=== PATIENT | female | born 1960 | race American Indian/Alaskan Native ===

== ENCOUNTER 2016-12-10 09:59 | Emergency (ER) | payer MEDICAID ==
[2016-12-10 10:03] VITALS: TEMP 98
[2016-12-10 10:04] VITALS: BMI 34.9
--- NOTE | 2016-12-10 10:49 | ED PDOC ---
Upper Extremity Pain/Injury Chief Complaint (Provider): Left elbow pain History Per: Patient History/Exam Limitations: no limitations Onset/Duration Of Symptoms: Hrs (12) Current Symptoms Are (Timing): Still Present Severity: Moderate Pain Scale Rating Of: 5 Exacerbating Factor(s): Movement Additional History Per: Patient Additional Complaint(s): 56 yo F presents to ED with c/o left arm pain since last night. Pt had bed delivered to home, and states that when she was trying to put sheets on the bed, the bed fell onto her arm. Maximal pain at elbow. States there was swelling of the elbow yesterday, for which she applied ice. Did not take any medication for the pain. Able to move the arm. Denies numbness/tingling/weakness. <Ashely Nunes - Last Filed: 12/10/16 11:16> <Mika Denton - Last Filed: 12/10/16 16:15> Time Seen by Provider: 12/10/16 10:15 Chief Complaint (Nursing): Upper Extremity Problem/Injury Supervising Attending Note - Supervising Attending Note The Documented history was done by the: Physician Engineering Associate, Attending Physician The documented physical exam was done by the: Physician Engineering Associate, Attending Physician The documented procedures were done by the: Physician Engineering Associate, Attending Physician - Attestation: I have personally seen and examined this patient.: Yes I have fully participated in the care of the patient.: Yes I have reviewed all pertinent clinical information: Yes <Mika Denton - Last Filed: 12/10/16 16:15> Past Medical History Reviewed: Historical Data, Nursing Documentation, Vital Signs Vital Signs: Last Vital Signs Temp 98 F 12/10/16 10:03 Pulse 94 H 12/10/16 10:03 Resp BP 158/114 H 12/10/16 10:03 Pulse Ox 100 12/10/16 10:03 - Medical History PMH: HTN, Hypercholesterolemia, Hyperlipidemia - Surgical History Surgical History: Coronary Stent Denies: Pacemaker - Family History Family History: States: Unknown Family Hx <Ashely Nunes - Last Filed: 12/10/16 11:16> Vital Signs: Last Vital Signs Temp 98 F 12/10/16 10:03 Pulse 89 12/10/16 11:14 Resp 18 12/10/16 11:14 BP 138/81 12/10/16 11:14 Pulse Ox 100 12/10/16 11:17 <CorrieLaurayamile Kramer - Last Filed: 12/10/16 16:15> - Home Medications Home Medications: Ambulatory Orders Medication Instructions Recorded Aspirin 81 mg PO DAILY 08/17/14 Oxycodone HCl/Acetaminophen 1 tab PO Q6H PRN #15 tab 11/21/14 [Percocet 325 mg-5 mg] Cephalexin [Keflex] 500 mg PO TID #9 cap 04/10/15 Peg 400/Hypromellose/Glycerin 1 - 2 drop OP DAILY #30 ml 06/02/16 [Visine Tears Drops] Amoxicillin/Clavulanate [Augmentin 1 tab PO BID #14 tab 06/04/16 875 MG-125 MG] Sulfamethoxazole/Trimethoprim 1 tab PO BID #14 tab 06/04/16 [Bactrim DS 800 mg-160 mg] Diphenhydra/Phenyleph/Acetamin 10 ml PO BID #180 liquid 09/19/16 [Delsym Cough+Cold Nighttime Lq] Guaifenesin [Mucinex] 600 mg PO BID #16 tab.er.12h 09/19/16 - Allergies Allergies/Adverse Reactions: Allergies Allergy/AdvReac Type Severity Reaction Status Date / Time No Known Allergies Allergy Verified 12/10/16 10:23 Review of Systems Constitutional: Negative for: Fever, Chills Musculoskeletal: Positive for: Arm Pain (left elbow) Neurological: Negative for: Weakness, Numbness, Dizziness <Ashely Nunes - Last Filed: 12/10/16 11:16> Physical Exam - Reviewed Nursing Documentation Reviewed: Yes Vital Signs Reviewed: Yes - Physical Exam Appears: Positive for: No Acute Distress Head Exam: Positive for: NORMAL INSPECTION Skin: Positive for: Normal Color, Warm, Dry Cardiovascular/Chest: Positive for: Regular Rate, Rhythm Respiratory: Positive for: Normal Breath Sounds Extremity: Positive for: Other (left shoulder full ROM with no tenderness to palpation. Left wrist and left hand also with full ROM and no tenderness. Left elbow - no deformity or swelling. tenderness to palpation of lateral epicondyle. FROM, but pain with flexion.). Negative for: Deformity, Swelling <Ashely Nunes - Last Filed: 12/10/16 11:16> - ECG O2 Sat by Pulse Oximetry: 100 - Radiology X-Ray: Interpreted by Me, Viewed By Me (d/w Dr. Denton) X-Ray Interpretation: Other (no acute fracture or dislocation seen) - Progress ED Course And Treament: No fracture on xray Likely contusion vs sprain will d/c home with sling, f/u with PMD and take ibuprofen 600mg TID prn pain, with meals <Ashely Nunes - Last Filed: 12/10/16 11:16> Disposition - Disposition Disposition Time: : <Ashely Nunes - Last Filed: 12/10/16 11:16> <Mika Denton - Last Filed: 12/10/16 16:15> - Clinical Impression Clinical Impression: Sprain of elbow, left - Disposition Referrals: Jhonatan Santillan MD [Primary Care Provider] - Condition: GOOD Additional Instructions: Take 600mg Ibuprofen every 6 hours, as needed for pain. Take with meals. Ice the area. Use sling as directed. Instructions: Elbow Sprain (ED)
[2016-12-10 11:14] VITALS: BP 138/81; PULSE 89; RESP 18
[2016-12-10 11:17] VITALS: O2SAT 100
--- NOTE | 2016-12-10 15:37 | RAD ---
PROCEDURE: Radiographs of the left elbow. HISTORY: pain COMPARISON: None available. FINDINGS: BONES: No acute displaced fracture. A lucency is noted about the medial radial head without extension to the articular surface and is presumed artifact; this is seen only on AP view. JOINTS: No dislocation. SOFT TISSUES: Unremarkable. No evidence of radiopaque foreign body. JOINT EFFUSION: No significant joint effusion. OTHER FINDINGS: None IMPRESSION: No acute displaced fracture, dislocation, or significant joint effusion identified. If symptoms persist, or if there is continued clinical concern, x-ray follow-up in 7-10 days should be considered.
== END 2016-12-10 11:15 | disposition home or self-care (01) ==
LOC: H.ER 09:59
DX: S53.402A Unspecified sprain of left elbow, initial encounter (principal); W20.8XXA Other cause of strike by thrown, projected or falling object, initial encounter; Y93.9 Activity, unspecified; I10 Essential (primary) hypertension; Z95.5 Presence of coronary angioplasty implant and graft

== ENCOUNTER 2016-12-18 08:10 | Emergency (ER) | payer MEDICAID ==
[2016-12-18 08:10] VITALS: BMI 34.9
[2016-12-18 08:16] VITALS: BP 136/83; PULSE 90; RESP 19; TEMP 97.9; O2SAT 99
[2016-12-18] MEDS ORDERED: Oxycodone/Acetaminophen 5/325 mg Tab ONE (08:47)
[2016-12-18] MEDS: Oxycodone/Acetaminophen 5/325 mg Tab PO ONE (08:54)
--- NOTE | 2016-12-18 09:03 | ED PDOC ---
HPI: Back Time Seen by Provider: 12/18/16 08:13 Chief Complaint (Nursing): Back Pain Chief Complaint (Provider): Back Pain History Per: Patient History/Exam Limitations: no limitations Onset/Duration Of Symptoms: Days Current Symptoms Are (Timing): Still Present Quality Of Discomfort: "Pain" Severity: Moderate Previous Symptoms: None Associated Symptoms: None Additional Complaint(s): Patient is a 56 year old female who presents to ED for evaluation of back pain worsening for several days. Patient states she was struck by a bed 2 weeks ago, initially injuring her elbow. States she was evaluated in ED at that time negative Xrays but only minimal back pain. Patient states back pain has since continued to worsen and is unbearable at this time. States taking Motrin at home with no relief. Denies numbness, weakness, urinary/bowel changes or neck pain. Pain reportedly radiates to bilateral legs. No abd pain. No chest pain. Past Medical History Reviewed: Historical Data, Nursing Documentation, Vital Signs Vital Signs: Last Vital Signs Temp 97.9 F 12/18/16 08:15 Pulse 90 12/18/16 08:15 Resp 19 12/18/16 08:15 BP 136/83 12/18/16 08:15 Pulse Ox 99 12/18/16 08:15 - Medical History PMH: HTN, Hypercholesterolemia, Hyperlipidemia - Surgical History Surgical History: Coronary Stent Denies: Pacemaker - Family History Family History: States: Unknown Family Hx - Living Arrangements Living Arrangements: With Family - Social History Alcohol: None Drugs: Denies - Home Medications Home Medications: Ambulatory Orders Medication Instructions Recorded Aspirin 81 mg PO DAILY 08/17/14 Oxycodone HCl/Acetaminophen 1 tab PO Q6H PRN #15 tab 11/21/14 [Percocet 325 mg-5 mg] Cephalexin [Keflex] 500 mg PO TID #9 cap 04/10/15 Peg 400/Hypromellose/Glycerin 1 - 2 drop OP DAILY #30 ml 06/02/16 [Visine Tears Drops] Amoxicillin/Clavulanate [Augmentin 1 tab PO BID #14 tab 06/04/16 875 MG-125 MG] Sulfamethoxazole/Trimethoprim 1 tab PO BID #14 tab 06/04/16 [Bactrim DS 800 mg-160 mg] Diphenhydra/Phenyleph/Acetamin 10 ml PO BID #180 liquid 09/19/16 [Delsym Cough+Cold Nighttime Lq] Guaifenesin [Mucinex] 600 mg PO BID #16 tab.er.12h 09/19/16 - Allergies Allergies/Adverse Reactions: Allergies Allergy/AdvReac Type Severity Reaction Status Date / Time No Known Allergies Allergy Verified 12/18/16 08:26 Review of Systems ROS Statement: Except As Marked, All Systems Reviewed And Found Negative Constitutional: Negative for: Fever, Weakness Eyes: Negative for: Vision Change Cardiovascular: Negative for: Chest Pain Respiratory: Negative for: Shortness of Breath Gastrointestinal: Negative for: Nausea, Vomiting Genitourinary Female: Negative for: Incontinence Musculoskeletal: Positive for: Back Pain, Leg Pain. Negative for: Neck Pain Neurological: Negative for: Weakness, Numbness, Headache Physical Exam - Reviewed Nursing Documentation Reviewed: Yes Vital Signs Reviewed: Yes - Physical Exam Appears: Positive for: Uncomfortable Head Exam: Positive for: ATRAUMATIC, NORMAL INSPECTION, NORMOCEPHALIC Skin: Positive for: Normal Color, Warm Eye Exam: Positive for: Normal appearance ENT: Positive for: Normal ENT Inspection Neck: Positive for: Normal, Painless ROM, Supple Cardiovascular/Chest: Positive for: Regular Rate, Rhythm. Negative for: Edema, Murmur Respiratory: Positive for: Normal Breath Sounds. Negative for: Respiratory Distress Gastrointestinal/Abdominal: Positive for: Normal Exam, Bowel Sounds, Soft. Negative for: Tenderness Back: Positive for: Normal Inspection, Other (diffuse lower lumbar tenderness (+ ) right sided straight leg raise at 20 degrees ). Negative for: L CVA Tenderness, R CVA Tenderness Extremity: Positive for: Normal ROM. Negative for: Tenderness, Pedal Edema, Calf Tenderness Neurologic/Psych: Positive for: Alert, Oriented. Negative for: Motor/Sensory Deficits - ECG O2 Sat by Pulse Oximetry: 99 (RA) Pulse Ox Interpretation: Normal - Radiology X-Ray: Interpreted by Me, Viewed By Me X-Ray Interpretation: No Acute Disease - Progress ED Course And Treament: 1000: Stable. AAOx3. Pain free. Tolerated PO. Fu with pcp. Ambulated. Medical Decision Making Medical Decision Making: Time: 824 Initial impression: Back pain r/o lumbar fracture Initial plan: -- Percocet PO -- Lumbar Spine Xray Scribe Attestation: Documented by Haylee Chow acting as a scribe for MD MD Estella Jaquez Attestation: All medical record entries made by the Dejaibflavio were at my direction and personally dictated by me. I have reviewed the chart and agree that the record accurately reflects my personal performance of the history, physical exam, medical decision making, and the department course for this patient. I have also personally directed, reviewed, and agree with the discharge instructions and disposition. Disposition - Clinical Impression Clinical Impression: Acute back pain - Patient ED Disposition Is Patient to be Admitted: No Counseled Patient/Family Regarding: Studies Performed, Diagnosis, Need For Followup - Disposition Referrals: [facility] [Outside] - 12/19/16 Disposition: Routine/Home Disposition Time: 10:01 Condition: STABLE Additional Instructions: Return if not better in 3 days. Instructions: Acute Low Back Pain (ED) Forms: [facility] ED School/Work Excuse
--- NOTE | 2016-12-18 11:12 | RAD ---
PROCEDURE: Radiographs of the Lumbar Spine. HISTORY: back pain COMPARISON: No prior. FINDINGS: BONES: No evidence of acute fracture or dislocation. DISC SPACES: Moderate degenerative changes more prominent at L3-L4. There is moderate narrowing of the disc is space at L3-L4 associated with endplate changes and osteophyte formation. OTHER FINDINGS: None. IMPRESSION: Moderate degenerative changes more prominent at L3-L4. .
== END 2016-12-18 10:39 | disposition home or self-care (01) ==
LOC: H.ER 08:10
DX: M54.9 Dorsalgia, unspecified (principal); E78.00 Pure hypercholesterolemia, unspecified; I10 Essential (primary) hypertension; Z79.82 Long term (current) use of aspirin; Z95.5 Presence of coronary angioplasty implant and graft

== ENCOUNTER 2016-12-25 08:31 | Emergency (ER) | payer MEDICAID ==
[2016-12-25 08:31] VITALS: BMI 34.9
[2016-12-25 08:41] VITALS: BP 149/83; PULSE 85; RESP 19; TEMP 98.3; O2SAT 99
--- NOTE | 2016-12-25 11:38 | ED PDOC ---
HPI: General Adult Time Seen by Provider: 12/25/16 09:04 Chief Complaint (Nursing): Abnormal Skin Integrity Chief Complaint (Provider): Abnormal Skin Integrity History Per: Patient History/Exam Limitations: no limitations Onset/Duration Of Symptoms: Days Current Symptoms Are (Timing): Still Present Severity: Moderate Additional Complaint(s): Patient is a 56 year old female who presents to ED for right breast pain for 5 days. Patient notes that she had an infection to breast 3 weeks ago, treated with antibiotics notes complete improvement of symptoms until 5 days. Patient reports bleeding and discharge from around the nipple with erythema. Denies fever, chills, chest pain or SOB. Against Medical Advice - AMA Patient Left Against Medical Advice: The patient declines admission to the hospital and wishes to leave the Emergency Department. This action is against my medical advice. This decision was made with informed refusal. The patient was told that admission to the hospital is necessary. Explanation of the reasons why were discussed. The risks of leaving were explained to the patient and include, but are not limited to, worsening of known or currently unknown conditions, permanent disability and from undiagnosed or untreated conditions. The patient has the capacity to make this informed decision and understands my explanation of the current medical problem and risks of leaving. The patient voluntarily accepts these risks and signed an AMA form documenting our conversation. The patient was given the opportunity to ask questions and reconsider. The patient was encouraged to return to the Emergency Department at any time for further care. Past Medical History Reviewed: Historical Data, Nursing Documentation, Vital Signs Vital Signs: Last Vital Signs Temp 98.3 F 12/25/16 08:40 Pulse 85 12/25/16 08:40 Resp 19 12/25/16 08:40 BP 149/83 12/25/16 08:40 Pulse Ox 99 12/25/16 11:42 - Medical History PMH: HTN, Hypercholesterolemia, Hyperlipidemia - Surgical History Surgical History: Coronary Stent Denies: Pacemaker - Family History Family History: States: Unknown Family Hx - Living Arrangements Living Arrangements: With Family - Social History Current smoker - smoking cessation education provided: No - Home Medications Home Medications: Ambulatory Orders Medication Instructions Recorded Aspirin 81 mg PO DAILY 08/17/14 Oxycodone HCl/Acetaminophen 1 tab PO Q6H PRN #15 tab 11/21/14 [Percocet 325 mg-5 mg] Cephalexin [Keflex] 500 mg PO TID #9 cap 04/10/15 Peg 400/Hypromellose/Glycerin 1 - 2 drop OP DAILY #30 ml 06/02/16 [Visine Tears Drops] Amoxicillin/Clavulanate [Augmentin 1 tab PO BID #14 tab 06/04/16 875 MG-125 MG] Sulfamethoxazole/Trimethoprim 1 tab PO BID #14 tab 06/04/16 [Bactrim DS 800 mg-160 mg] Diphenhydra/Phenyleph/Acetamin 10 ml PO BID #180 liquid 09/19/16 [Delsym Cough+Cold Nighttime Lq] Guaifenesin [Mucinex] 600 mg PO BID #16 tab.er.12h 09/19/16 Doxycycline Hyclate 100 mg PO Q12 #14 tab 12/25/16 - Allergies Allergies/Adverse Reactions: Allergies Allergy/AdvReac Type Severity Reaction Status Date / Time No Known Allergies Allergy Verified 12/18/16 08:26 Review of Systems ROS Statement: Except As Marked, All Systems Reviewed And Found Negative Constitutional: Negative for: Fever, Chills Cardiovascular: Negative for: Chest Pain, Palpitations Respiratory: Negative for: Shortness of Breath Gastrointestinal: Negative for: Nausea, Vomiting Musculoskeletal: Positive for: Other (Right breast pain). Negative for: Back Pain Skin: Negative for: Rash Neurological: Negative for: Weakness, Numbness Physical Exam - Reviewed Nursing Documentation Reviewed: Yes Vital Signs Reviewed: Yes - Physical Exam Appears: Positive for: Non-toxic, No Acute Distress Skin: Positive for: Normal Color, Warm Eye Exam: Positive for: Normal appearance Neck: Positive for: Normal, Painless ROM Cardiovascular/Chest: Positive for: Regular Rate, Rhythm. Negative for: Murmur Respiratory: Positive for: Normal Breath Sounds. Negative for: Respiratory Distress Back: Positive for: Normal Inspection Extremity: Positive for: Normal ROM Neurologic/Psych: Positive for: Alert, Oriented Comments: Right breast: Exam with Nicole Dough Catcher, (+) erythema around right nipple with healing wound to right side. No swelling, tenderness or mass - ECG O2 Sat by Pulse Oximetry: 99 (RA) Pulse Ox Interpretation: Normal Medical Decision Making Medical Decision Making: Time: 934 Initial impression: Breast Carcinoma less likely Cellulitis Initial plan: -- CXR -- BMP -- CBC Refusing work up at this time including labs and CT. Discussed with family resident, appointment made for out patient work up. Patient signed AMA. Patient may return tomorrow for further work up but also instructed to follow up with her appointment on January 29. Scribe Attestation: Documented by Haylee Chow acting as a scribe for Mika Denton MD MD Scribe Attestation: All medical record entries made by the Scribe were at my direction and personally dictated by me. I have reviewed the chart and agree that the record accurately reflects my personal performance of the history, physical exam, medical decision making, and the department course for this patient. I have also personally directed, reviewed, and agree with the discharge instructions and disposition. Disposition - Clinical Impression Clinical Impression: Cellulitis of breast, Nipple discharge, bloody - Patient ED Disposition Is Patient to be Admitted: No Doctor Will See Patient In The: Office Counseled Patient/Family Regarding: Studies Performed, Diagnosis, Need For Followup - Disposition Referrals: [facility] [Outside] Disposition: Against Medical Advice Disposition Time: 11:00 Condition: GOOD Additional Instructions: Follow up with your appointment on January 29 with the clinic. You will need mammography or MRI to rule out breast cancer. Prescriptions: Doxycycline Hyclate 100 mg PO Q12 #14 tab Instructions: Breast Self Exam for Women (ED), Cellulitis (ED)
== END 2016-12-25 11:10 | disposition left against medical advice (07) ==
LOC: H.ER 08:31
DX: N64.4 Mastodynia (principal); E78.00 Pure hypercholesterolemia, unspecified; I10 Essential (primary) hypertension; Z79.82 Long term (current) use of aspirin; Z95.5 Presence of coronary angioplasty implant and graft

== ENCOUNTER 2016-12-27 18:34 | Emergency (ER) | payer MEDICAID ==
[2016-12-27 18:35] VITALS: BMI 34.9
[2016-12-27 18:50] VITALS: BP 152/77; RESP 20; TEMP 97.6; O2SAT 99
--- NOTE | 2016-12-27 19:13 | ED PDOC ---
HPI: General Adult Time Seen by Provider: 12/27/16 18:57 Chief Complaint (Nursing): Medical Clearance Chief Complaint (Provider): Reevaluation of Right Breast Infection History Per: Patient History/Exam Limitations: no limitations Onset/Duration Of Symptoms: Days (seen in ED 2 days ago) Have you had recent travel within the past 21 days to any of the following countries: [place], [place], [place] or [place]?: No Current Symptoms Are (Timing): Better Additional Complaint(s): Emy Melton is a 56 year old female, with a past medical history, who presents to the ED on 12/27/16 for the reevaluation of a right breast infection for which she had initially been seen within the ED 2 days ago. Patient had signed out AMA during that visit after being offered hospital admission, but reports that she has been taking the previously prescribed PO antibiotics as instructed. She not only reports that the affected breast appears much improved but also denies any worsening of pain, fever, body aches, new onset/worsening drainage from affected area or other signs of infection. Of note, patient has a scheduled appointment with the Dr. Santillan (Clinic) on 07/08. Most recent mammogram is as of 2014, reportedly normal though she had also been told at that time she had "a lot of tissue". Past Medical History Reviewed: Historical Data, Nursing Documentation, Vital Signs Vital Signs: Last Vital Signs Temp 97.6 F 12/27/16 18:48 Pulse 75 12/27/16 19:42 Resp 20 12/27/16 18:48 BP 152/77 H 12/27/16 18:48 Pulse Ox 99 12/27/16 19:56 - Medical History PMH: CAD (s/p IA), HTN, Hypercholesterolemia, Hyperlipidemia Denies: Diabetes - Surgical History Surgical History: Coronary Stent, Denies: Pacemaker - Family History Family History: States: Unknown Family Hx - Social History Ex-Smoker (has not smoked in the last 12 months): Yes (2ppd x15 years, quit 2004 ) Alcohol: Social (wine) Drugs: Denies - Home Medications Home Medications: Ambulatory Orders Medication Instructions Recorded Aspirin 81 mg PO DAILY 08/17/14 Oxycodone HCl/Acetaminophen 1 tab PO Q6H PRN #15 tab 11/21/14 [Percocet 325 mg-5 mg] Cephalexin [Keflex] 500 mg PO TID #9 cap 04/10/15 Peg 400/Hypromellose/Glycerin 1 - 2 drop OP DAILY #30 ml 06/02/16 [Visine Tears Drops] Amoxicillin/Clavulanate [Augmentin 1 tab PO BID #14 tab 06/04/16 875 MG-125 MG] Sulfamethoxazole/Trimethoprim 1 tab PO BID #14 tab 06/04/16 [Bactrim DS 800 mg-160 mg] Diphenhydra/Phenyleph/Acetamin 10 ml PO BID #180 liquid 09/19/16 [Delsym Cough+Cold Nighttime Lq] Guaifenesin [Mucinex] 600 mg PO BID #16 tab.er.12h 09/19/16 Doxycycline Hyclate 100 mg PO Q12 #14 tab 12/25/16 - Allergies Allergies/Adverse Reactions: Allergies Allergy/AdvReac Type Severity Reaction Status Date / Time No Known Allergies Allergy Verified 12/27/16 18:47 Review of Systems Constitutional: Negative for: Fever, Chills Skin: Positive for: Other (reevaluation of right breast infection) Physical Exam - Reviewed Nursing Documentation Reviewed: Yes Vital Signs Reviewed: Yes - Physical Exam Appears: Positive for: Non-toxic, No Acute Distress Cardiovascular/Chest: Positive for: Other (well demarcated area of erythema localized to right upper portion of right areola, nontender to palpation with no warmth/exudates; remainder of breast is soft with no palpable masses; no discharge from nipple) Neurologic/Psych: Positive for: Alert, Oriented - ECG O2 Sat by Pulse Oximetry: 99 (RA) Pulse Ox Interpretation: Normal Medical Decision Making Medical Decision Makin:57 Initial Impression: breast infection, improved Previous records reviewed: 12/24/16 ED Evaluation 19:07 Patient is medically stable and requires no emergent treatment in the ED at this time, will discharge home with instructions to continue taking previously prescribed PO antibiotics as directed and to keep her followup appointment as scheduled. All questions answered and there is agreement to discharge plan. Return for acute worsening of symptoms. Scribe Attestation: Documented by Thuy Garcia, acting as a scribe for Mary Chairez MD. Provider Scribe Attestation: All medical record entries made by the Scribe were at my direction and personally dictated by me. I have reviewed the chart and agree that the record accurately reflects my personal performance of the history, physical exam, medical decision making, and the department course for this patient. I have also personally directed, reviewed, and agree with the discharge instructions and disposition. Disposition - Clinical Impression Clinical Impression: Breast infection - Patient ED Disposition Is Patient to be Admitted: No - Disposition Referrals: [facility] [Outside] [facility] [Outside] Disposition: Routine/Home Disposition Time: 19:07 Condition: STABLE Additional Instructions: CALL THE CLINIC TO MAKE AN APPOINTMENT WITH THE SURGICAL CLINIC WITHIN A WEEK. YOU SHOULD HAVE A BIOPSY OF THE AREA FOR FURTHER EVALUATION CONTINUE THE FULL COURSE OF ANTIBIOTICS RETURN TO ER FOR WORSENING SYMPTOMS Instructions: Breast Abscess Drainage (ED)
[2016-12-27 19:42] VITALS: PULSE 75
== END 2016-12-27 19:15 | disposition home or self-care (01) ==
LOC: H.ER 18:34
DX: N61.0 Mastitis without abscess (principal); I10 Essential (primary) hypertension; Z95.5 Presence of coronary angioplasty implant and graft; I25.10 Atherosclerotic heart disease of native coronary artery without angina pectoris; Z87.891 Personal history of nicotine dependence

== ENCOUNTER 2017-06-25 22:24 | Emergency (ER) | payer MEDICAID ==
[2017-06-25 22:24] VITALS: BMI 38.1
[2017-06-25 22:35] VITALS: BP 133/82; PULSE 84; RESP 16; TEMP 98; O2SAT 100
[2017-06-25] MEDS ORDERED: Acetaminophen-Codeine 300/30 mg Tab PO STA (23:30)
[2017-06-25] MEDS ORDERED: Acetaminophen-Codeine 300/30 mg Tab ONE (23:37)
--- NOTE | 2017-06-25 23:39 | ED PDOC ---
Lower Extremity Pain/Injury Time Seen by Provider: 06/25/17 22:44 Chief Complaint (Nursing): Lower Extremity Problem/Injury Chief Complaint (Provider): Right knee pain History Per: Patient History/Exam Limitations: no limitations Onset/Duration Of Symptoms: Mins Current Symptoms Are (Timing): Still Present Severity: Moderate Pain Scale Rating Of: 8 Additional Complaint(s): Pt states she tripped on uneven pavement and landed on the right knee. No medications for pain. Past Medical History Vital Signs: Last Vital Signs Temp 98.0 F 06/25/17 22:33 Pulse 84 06/25/17 22:33 Resp 16 06/25/17 22:33 BP 133/82 06/25/17 22:33 Pulse Ox 100 06/25/17 22:33 - Medical History PMH: CAD (s/p [place]), HTN, Hypercholesterolemia, Hyperlipidemia Denies: Diabetes - Surgical History Surgical History: Coronary Stent, Denies: Pacemaker - Family History Family History: States: Unknown Family Hx - Home Medications Home Medications: Ambulatory Orders Medication Instructions Recorded Aspirin 81 mg PO DAILY 08/17/14 Oxycodone HCl/Acetaminophen 1 tab PO Q6H PRN #15 tab 11/21/14 [Percocet 325 mg-5 mg] Cephalexin [Keflex] 500 mg PO TID #9 cap 04/10/15 Peg 400/Hypromellose/Glycerin 1 - 2 drop OP DAILY #30 ml 06/02/16 [Visine Tears Drops] Amoxicillin/Clavulanate [Augmentin 1 tab PO BID #14 tab 06/04/16 875 MG-125 MG] Sulfamethoxazole/Trimethoprim 1 tab PO BID #14 tab 06/04/16 [Bactrim DS 800 mg-160 mg] Diphenhydra/Phenyleph/Acetamin 10 ml PO BID #180 liquid 09/19/16 [Delsym Cough+Cold Nighttime Lq] Guaifenesin [Mucinex] 600 mg PO BID #16 tab.er.12h 09/19/16 Doxycycline Hyclate 100 mg PO Q12 #14 tab 12/25/16 Acetaminophen with Codeine 1 tab PO Q6H PRN #10 tab 06/25/17 [Tylenol with Codeine No. 3 300 mg-30 mg] - Allergies Allergies/Adverse Reactions: Allergies Allergy/AdvReac Type Severity Reaction Status Date / Time No Known Allergies Allergy Verified 06/25/17 22:33 Review of Systems Constitutional: Negative for: Fever, Chills Musculoskeletal: Positive for: Leg Pain Physical Exam - Reviewed Nursing Documentation Reviewed: Yes Vital Signs Reviewed: Yes - Physical Exam Appears: Positive for: Well, Non-toxic, No Acute Distress Head Exam: Positive for: ATRAUMATIC, NORMAL INSPECTION, NORMOCEPHALIC Skin: Positive for: Warm. Negative for: Normal Color (Very superficial abrasion , right knee ) Eye Exam: Positive for: Normal appearance ENT: Positive for: Normal ENT Inspection Neck: Positive for: Normal, Painless ROM Respiratory: Negative for: Accessory Muscle Use, Respiratory Distress Back: Positive for: Normal Inspection Extremity: Positive for: Normal ROM, Tenderness (Right patella ), Swelling. Negative for: Deformity Neurologic/Psych: Positive for: Alert, Oriented - ECG O2 Sat by Pulse Oximetry: 100 Medical Decision Making Medical Decision Making: x-ray without acute fracture or dislocation. Disposition - Clinical Impression Clinical Impression: Knee injury - Patient ED Disposition Is Patient to be Admitted: No Counseled Patient/Family Regarding: Diagnosis, Need For Followup, Rx Given - Disposition Referrals: Radha Fleming MD [Staff Provider] - Disposition: Routine/Home Disposition Time: 23:38 Condition: GOOD Additional Instructions: Ice, elevation. Tylenol #3 for severe pain. Prescriptions: Acetaminophen with Codeine [Tylenol with Codeine No. 3 300 mg-30 mg] 1 tab PO Q6H PRN #10 tab PRN Reason: Pain, Severe (8-10) Instructions: Swollen Knee Joint (ED)
--- NOTE | 2017-06-26 13:00 | RAD ---
PROCEDURE: Right Knee Radiographs. HISTORY: knee pain s/p fall COMPARISON: None. FINDINGS: BONES: No fracture. Characteristic Fely-Stieda calcification adjacent to medial femoral condyle. JOINTS: Minimal patellofemoral osteoarthritis. Medial and lateral compartments appear grossly preserved. No articular erosion. JOINT EFFUSION: None. OTHER FINDINGS: None. IMPRESSION: Minimal patellofemoral osteoarthritis. Fely-Stieda a calcification noted adjacent to medial femoral condyle.
== END 2017-06-25 23:53 | disposition home or self-care (01) ==
LOC: H.ER 22:24
DX: S89.92XA Unspecified injury of left lower leg, initial encounter (principal); W19.XXXA Unspecified fall, initial encounter; Y92.410 Unspecified street and highway as the place of occurrence of the external cause

== ENCOUNTER 2018-10-30 18:19 | Emergency (ER) | payer MEDICAID ==
[2018-10-30 18:19] VITALS: BMI 36.6
--- NOTE | 2018-10-30 19:29 | ED PDOC ---
HPI: CCC, URI, Sore Throat Time Seen by Provider: 10/30/18 19:15 Chief Complaint (Nursing): Flu-like Symptoms Chief Complaint (Provider): cough, congestion and sore throat History Per: Patient History/Exam Limitations: no limitations Onset/Duration Of Symptoms: Days (x2) Current Symptoms Are (Timing): Still Present Associated Symptoms: Sore Throat, Cough, Sputum, Nasal Congestion. denies: Fever, Chills, Nausea, Vomiting, Diarrhea Additional Complaint(s): Emy Melton is a 58 year old female, with a past medical history of CAD and currently on Plavix, who presents to the emergency department complaining of productive cough, congestion and sore throat onset for x2 days. 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 She took Advil at 08:00 with no improvement. She denies any fever, chills, nausea, vomiting and diarrhea. No further medical complaints. PMD: Jhonatan Santillan Past Medical History Reviewed: Historical Data, Nursing Documentation, Vital Signs Vital Signs: Last Vital Signs Temp 98.1 F 10/30/18 19:03 Pulse 72 10/30/18 19:03 Resp 18 10/30/18 19:03 BP 162/90 H 10/30/18 19:03 Pulse Ox 97 10/30/18 19:03 - Medical History PMH: Asthma, CAD (s/p [place]), HTN, Hypercholesterolemia, Hyperlipidemia Denies: Diabetes - Surgical History Surgical History: Coronary Stent, Denies: Pacemaker - Family History Family History: States: Unknown Family Hx - Home Medications Home Medications: Ambulatory Orders Medication Instructions Recorded Aspirin 81 mg PO DAILY 08/17/14 Oxycodone HCl/Acetaminophen 1 tab PO Q6H PRN #15 tab 11/21/14 [Percocet 325 mg-5 mg] Cephalexin [Keflex] 500 mg PO TID #9 cap 04/10/15 Peg 400/Hypromellose/Glycerin 1 - 2 drop OP DAILY #30 ml 06/02/16 [Visine Tears Drops] Amoxicillin/Clavulanate [Augmentin 1 tab PO BID #14 tab 06/04/16 875 MG-125 MG] Sulfamethoxazole/Trimethoprim 1 tab PO BID #14 tab 06/04/16 [Bactrim DS 800 mg-160 mg] Diphenhydra/Phenyleph/Acetamin 10 ml PO BID #180 liquid 09/19/16 [Delsym Cough+Cold Nighttime Lq] Guaifenesin [Mucinex] 600 mg PO BID #16 tab.er.12h 09/19/16 Doxycycline Hyclate 100 mg PO Q12 #14 tab 12/25/16 Acetaminophen with Codeine 1 tab PO Q6H PRN #10 tab 06/25/17 [Tylenol with Codeine No. 3 300 mg-30 mg] Albuterol HFA [Ventolin HFA 90 2 puff IH Q6 #200 puff 07/18/17 mcg/actuation (8 g)] Amoxicillin [Amoxil 500 mg Cap] 500 mg PO BID #14 cap 07/18/17 Promethazine/Codeine 5 ml PO Q12 PRN #100 ml 10/30/18 [Codeine/Promethazine 10 MG/5 Ml-6.25 MG/5 Ml] - Allergies Allergies/Adverse Reactions: Allergies Allergy/AdvReac Type Severity Reaction Status Date / Time No Known Allergies Allergy Verified 10/30/18 19:06 Review of Systems ROS Statement: Except As Marked, All Systems Reviewed And Found Negative Constitutional: Negative for: Fever, Chills ENT: Positive for: Nose Congestion, Throat Pain Respiratory: Positive for: Cough Gastrointestinal: Negative for: Nausea, Vomiting, Diarrhea Physical Exam - Reviewed Nursing Documentation Reviewed: Yes Vital Signs Reviewed: Yes - Physical Exam Appears: Positive for: No Acute Distress Head Exam: Positive for: ATRAUMATIC, NORMAL INSPECTION, NORMOCEPHALIC Skin: Positive for: Normal Color, Warm, Dry Eye Exam: Positive for: Normal appearance, EOMI, PERRL ENT: Positive for: Nasal Congestion. Negative for: Pharyngeal Erythema, Tonsillar Exudate, Tonsillar Swelling Neck: Positive for: Normal, Painless ROM, Supple Cardiovascular/Chest: Positive for: Regular Rate, Rhythm. Negative for: Murmur Respiratory: Positive for: Normal Breath Sounds. Negative for: Respiratory Distress Gastrointestinal/Abdominal: Positive for: Normal Exam, Soft. Negative for: Tenderness, Guarding, Rebound Back: Positive for: Normal Inspection. Negative for: L CVA Tenderness, R CVA Tenderness, Vertebral Tenderness Extremity: Positive for: Normal ROM (upper and lower extremities). Negative for: Deformity, Swelling Neurologic/Psych: Positive for: Alert, Oriented. Negative for: Motor/Sensory Deficits - ECG O2 Sat by Pulse Oximetry: 97 (RA) Pulse Ox Interpretation: Normal - Progress ED Course And Treament: influenza a/b neg rapid strep neg NS 1 liter 500ml per hour Medical Decision Making Medical Decision Making: Time: 19:15 Initial Impression: URI, viral illness Initial Plan: --Influenza A B --Rapid Strep Group A Antigen --Reevaluation 20:59 Upon provider reevaluation patient is feeling better, is medically stable, and requires no further treatment in the ED at this time. Patient will be discharged home. Counseling was provided and all questions were answered regarding diagnosis and need for follow up with PMD. There is agreement to discharge plan. Return if symptoms persist or worsen. Scribe Attestation: Documented by Supa Arias, acting as a scribe for Slick Roberts PA-C. Provider Scribe Attestation: All medical record entries made by the Scribe were at my direction and personally dictated by me. I have reviewed the chart and agree that the record accurately reflects my personal performance of the history, physical exam, medical decision making, and the department course for this patient. I have also personally directed, reviewed, and agree with the discharge instructions and disposition. Disposition - Clinical Impression Clinical Impression: Viral illness - Patient ED Disposition Is Patient to be Admitted: No - Disposition Disposition: Routine/Home Disposition Time: 20:59 Condition: FAIR Prescriptions: Promethazine/Codeine [Codeine/Promethazine 10 MG/5 Ml-6.25 MG/5 Ml] 5 ml PO Q12 PRN #100 ml PRN Reason: Cough Instructions: Viral Upper Respiratory Infection, Adult (DC) Forms: [facility] ED School/Work Excuse
[2018-10-30 21:07] VITALS: BP 155/80; PULSE 74; RESP 16; TEMP 98; O2SAT 98
== END 2018-10-30 21:13 | disposition home or self-care (01) ==
LOC: H.ER 18:19
DX: B34.9 Viral infection, unspecified (principal); E78.00 Pure hypercholesterolemia, unspecified; I10 Essential (primary) hypertension; I25.10 Atherosclerotic heart disease of native coronary artery without angina pectoris; I25.2 Old myocardial infarction; Z95.5 Presence of coronary angioplasty implant and graft

== ENCOUNTER 2019-01-27 18:21 | Emergency (ER) | payer MEDICAID ==
[2019-01-27 18:22] VITALS: BMI 36.6
[2019-01-27 18:29] VITALS: BP 146/74; PULSE 83; RESP 18; TEMP 97.5; O2SAT 99
[2019-01-27] MEDS ORDERED: Naproxen 500 MG TAB PO STA (18:57)
--- NOTE | 2019-01-27 18:58 | ED PDOC ---
Lower Extremity Pain/Injury Time Seen by Provider: 01/27/19 18:46 Chief Complaint (Nursing): Lower Extremity Problem/Injury Chief Complaint (Provider): LEFT FOOT PAIN History Per: Patient (58 Y/O FEMALE HERE FOR EVALUATION OF LEFT FOOT PAIN. NOTES BEER CAN DROPPED ON FOOT TODAY. ATTEMPTED TO GO TO WORK BUT UNABLE TO PUT SOCK OVER FOOT. ) Past Medical History Reviewed: Historical Data, Nursing Documentation, Vital Signs Vital Signs: Last Vital Signs Temp 97.5 F L 01/27/19 18:26 Pulse 83 01/27/19 18:26 Resp 18 01/27/19 18:26 BP 146/74 01/27/19 18:26 Pulse Ox 99 01/27/19 18:26 Primary Care Provider: Jhonatan Santillan - Medical History PMH: Asthma, CAD (s/p [place]), HTN, Hypercholesterolemia, Hyperlipidemia Denies: Diabetes - Surgical History Surgical History: Coronary Stent, Denies: Pacemaker - Family History Family History: States: Unknown Family Hx - Home Medications Home Medications: Ambulatory Orders Medication Instructions Recorded Aspirin 81 mg PO DAILY 08/17/14 Oxycodone HCl/Acetaminophen 1 tab PO Q6H PRN #15 tab 11/21/14 [Percocet 325 mg-5 mg] Cephalexin [Keflex] 500 mg PO TID #9 cap 04/10/15 Peg 400/Hypromellose/Glycerin 1 - 2 drop OP DAILY #30 ml 06/02/16 [Visine Tears Drops] Amoxicillin/Clavulanate [Augmentin 1 tab PO BID #14 tab 06/04/16 875 MG-125 MG] Sulfamethoxazole/Trimethoprim 1 tab PO BID #14 tab 06/04/16 [Bactrim DS 800 mg-160 mg] Diphenhydra/Phenyleph/Acetamin 10 ml PO BID #180 liquid 09/19/16 [Delsym Cough+Cold Nighttime Lq] Guaifenesin [Mucinex] 600 mg PO BID #16 tab.er.12h 09/19/16 Doxycycline Hyclate 100 mg PO Q12 #14 tab 12/25/16 Acetaminophen with Codeine 1 tab PO Q6H PRN #10 tab 06/25/17 [Tylenol with Codeine No. 3 300 mg-30 mg] Albuterol HFA [Ventolin HFA 90 2 puff IH Q6 #200 puff 07/18/17 mcg/actuation (8 g)] Amoxicillin [Amoxil 500 mg Cap] 500 mg PO BID #14 cap 07/18/17 Promethazine/Codeine 5 ml PO Q12 PRN #100 ml 10/30/18 [Codeine/Promethazine 10 MG/5 Ml-6.25 MG/5 Ml] Naproxen 375 mg PO Q8 PRN #21 tablet 01/27/19 - Allergies Allergies/Adverse Reactions: Allergies Allergy/AdvReac Type Severity Reaction Status Date / Time No Known Allergies Allergy Verified 10/30/18 19:06 Review of Systems ROS Statement: Except As Marked, All Systems Reviewed And Found Negative Musculoskeletal: Positive for: Foot Pain Physical Exam - Reviewed Nursing Documentation Reviewed: Yes Vital Signs Reviewed: Yes - Physical Exam Appears: Positive for: Well, Non-toxic, No Acute Distress Head Exam: Positive for: ATRAUMATIC, NORMAL INSPECTION, NORMOCEPHALIC Skin: Positive for: Normal Color, Warm, DRY Eye Exam: Positive for: EOMI, Normal appearance, PERRL ENT: Positive for: Normal ENT Inspection Neck: Positive for: Normal, Painless ROM Cardiovascular/Chest: Positive for: Regular Rate, Rhythm Respiratory: Positive for: CNT, Normal Breath Sounds Gastrointestinal/Abdominal: Positive for: Normal Exam, Soft Back: Positive for: Normal Inspection Extremity: Positive for: Normal ROM, Tenderness, Swelling (LEFT ANKLE SWELLING; LEFT LATERAL FOOT TENDERNESS AND SWELLING PROXIMALLY) Neurological/Psych: Positive for: Awake, Alert, Normal Tone - ECG O2 Sat by Pulse Oximetry: 99 - Progress ED Course And Treament: XRY FOOT: NEG FX XRY ANKLE: NEG FX NAPROXEN 500MG X 1 DOSE Disposition - Clinical Impression Clinical Impression: Contusion of foot, left - Patient ED Disposition Is Patient to be Admitted: No - Disposition Referrals: Podiatry Clinic [Outside] Disposition: Routine/Home Disposition Time: 19:39 Condition: FAIR Prescriptions: Naproxen 375 mg PO Q8 PRN #21 tablet PRN Reason: Pain, Moderate (4-7) Instructions: Contusion (DC) Forms: [facility] ED School/Work Excuse
[2019-01-27] MEDS ORDERED: Naproxen 500 MG TAB PO ONE (19:09)
--- NOTE | 2019-01-28 08:50 | RAD ---
Date of service: 01/27/2019 PROCEDURE: Left Ankle Radiographs. HISTORY: ANKLE INJURY COMPARISON: None available. TECHNIQUE: 3 views obtained. FINDINGS: BONES: No acute fracture or destructive bony lesion identified. JOINTS: Normal. No osteoarthritis. Ankle mortise maintained. Talar dome intact SOFT TISSUES: Vascular calcifications are identified posteriorly. OTHER FINDINGS: None. IMPRESSION: No acute fracture or dislocation left ankle.
--- NOTE | 2019-01-28 08:52 | RAD ---
Date of service: 01/27/2019 PROCEDURE: Left Foot Radiographs. HISTORY: injury COMPARISON: Left foot radiographs 04/10/2015. TECHNIQUE: 3 views obtained. FINDINGS: BONES: No acute fracture appreciated throughout the left foot. No destructive bony lesion identified. Moderate plantar calcaneal spur now identified. JOINTS: Increased degenerative changes seen at the 1st metatarsophalangeal joint where there is also mild hallux valgus deformity in the interval. Limited degenerative cortical sclerosis appreciate throughout the interphalangeal joints diffusely as well as the hindfoot joints diffusely. No subluxation or dislocation. SOFT TISSUES: Vascular calcifications are identified at the dorsal midfoot soft tissues as well as incidentally at the posterior and anterior ankle soft tissues. OTHER FINDINGS: None. IMPRESSION: No acute fracture or dislocation appreciated throughout the left foot although degenerative changes of increased interval mildly. Vascular soft tissue calcifications are also increased in the interval.
== END 2019-01-27 19:40 | disposition home or self-care (01) ==
LOC: H.ER 18:21
DX: S90.32XA Contusion of left foot, initial encounter (principal); I10 Essential (primary) hypertension; J45.909 Unspecified asthma, uncomplicated; Z79.82 Long term (current) use of aspirin; Z95.5 Presence of coronary angioplasty implant and graft; I25.2 Old myocardial infarction; E78.00 Pure hypercholesterolemia, unspecified; I25.10 Atherosclerotic heart disease of native coronary artery without angina pectoris; W20.8XXA Other cause of strike by thrown, projected or falling object, initial encounter

== ENCOUNTER 2019-02-11 18:22 | Emergency (ER) | payer MEDICAID ==
[2019-02-11 18:22] VITALS: BMI 36.6
[2019-02-11 19:10] VITALS: RESP 18
--- NOTE | 2019-02-11 21:35 | ED PDOC ---
Lower Extremity Pain/Injury Time Seen by Provider: 02/11/19 19:21 Chief Complaint (Nursing): Lower Extremity Problem/Injury Chief Complaint (Provider): Left Foot Pain History Per: Patient History/Exam Limitations: no limitations Onset/Duration Of Symptoms: Days Additional Complaint(s): 58 year old female presents to ED with left foot pain. On 01/27 a beer can fell on her left foot/ankle. She was seen in the ED on 02/08 and Xrays turned out to be normal, then contacted Dr Pleitez who informed her she may have a fracture of the foot via the phone. He also recommended to make sure she does not have a blood clot. She was unable to come to ED until today. Patient denies numbness, tingling, history of DVT or PE, chest pain or SOB. PMD: Jhonatan Santillan Past Medical History Reviewed: Historical Data, Nursing Documentation, Vital Signs Vital Signs: Last Vital Signs Temp 98.1 F 02/11/19 19:09 Pulse 82 02/11/19 19:09 Resp 18 02/11/19 19:09 BP 148/85 02/11/19 19:09 Pulse Ox 100 02/11/19 19:09 Primary Care Provider: Jhonatan Santillan - Medical History PMH: Asthma, CAD (s/p [place]), HTN, Hypercholesterolemia, Hyperlipidemia Denies: Diabetes - Surgical History Surgical History: Coronary Stent, Denies: Pacemaker - Family History Family History: States: Unknown Family Hx - Social History Current smoker - smoking cessation education provided: No Alcohol: None Drugs: Denies - Home Medications Home Medications: Ambulatory Orders Medication Instructions Recorded Aspirin 81 mg PO DAILY 08/17/14 Oxycodone HCl/Acetaminophen 1 tab PO Q6H PRN #15 tab 11/21/14 [Percocet 325 mg-5 mg] Cephalexin [Keflex] 500 mg PO TID #9 cap 04/10/15 Peg 400/Hypromellose/Glycerin 1 - 2 drop OP DAILY #30 ml 06/02/16 [Visine Tears Drops] Amoxicillin/Clavulanate [Augmentin 1 tab PO BID #14 tab 06/04/16 875 MG-125 MG] Sulfamethoxazole/Trimethoprim 1 tab PO BID #14 tab 06/04/16 [Bactrim DS 800 mg-160 mg] Diphenhydra/Phenyleph/Acetamin 10 ml PO BID #180 liquid 09/19/16 [Delsym Cough+Cold Nighttime Lq] Guaifenesin [Mucinex] 600 mg PO BID #16 tab.er.12h 09/19/16 Doxycycline Hyclate 100 mg PO Q12 #14 tab 12/25/16 Acetaminophen with Codeine 1 tab PO Q6H PRN #10 tab 06/25/17 [Tylenol with Codeine No. 3 300 mg-30 mg] Albuterol HFA [Ventolin HFA 90 2 puff IH Q6 #200 puff 07/18/17 mcg/actuation (8 g)] Amoxicillin [Amoxil 500 mg Cap] 500 mg PO BID #14 cap 07/18/17 Promethazine/Codeine 5 ml PO Q12 PRN #100 ml 10/30/18 [Codeine/Promethazine 10 MG/5 Ml-6.25 MG/5 Ml] Naproxen 375 mg PO Q8 PRN #21 tablet 01/27/19 - Allergies Allergies/Adverse Reactions: Allergies Allergy/AdvReac Type Severity Reaction Status Date / Time No Known Allergies Allergy Verified 10/30/18 19:06 Review of Systems ROS Statement: Except As Marked, All Systems Reviewed And Found Negative Cardiovascular: Negative for: Chest Pain Respiratory: Negative for: Shortness of Breath Musculoskeletal: Positive for: Foot Pain (left) Neurological: Negative for: Numbness (and tingling) Physical Exam - Reviewed Nursing Documentation Reviewed: Yes Vital Signs Reviewed: Yes - Physical Exam Appears: Positive for: Well, Non-toxic, No Acute Distress Skin: Positive for: Normal Color, Warm. Negative for: Rash Eye Exam: Positive for: Normal appearance Pulses-Dorsalis Pedis (L): 2+ Pulses-Dorsalis Pedis (R): 2+ Extremity: Positive for: Tenderness (lateral malleolal, no warmth, no erythema), Other (negative Imer sign). Negative for: Calf Tenderness (none bilaterally) - ECG O2 Sat by Pulse Oximetry: 100 (RA) Pulse Ox Interpretation: Normal Medical Decision Making Medical Decision Making: Time: 2099 Initial Impression: Initial Plan: Ankle x-rays Duplex B/L lower extremity vein Podiatry resident evaluated then spoke with Dr Mandel, repeat Xrays of the ankle and US, no CT scan done. Foot/ankle wrapped with hilliard dressing Scribe Attestation: Documented by Reginald Valencia, acting as a scribe for Romel Galvan PA-C Provider Scribe Attestation: All medical record entries made by the Scribe were at my direction and personally dictated by me. I have reviewed the chart and agree that the record accurately reflects my personal performance of the history, physical exam, medical decision making, and the department course for this patient. I have also personally directed, reviewed, and agree with the discharge instructions and disposition. Disposition - Clinical Impression Clinical Impression: Foot pain - Patient ED Disposition Is Patient to be Admitted: No - Disposition Referrals: Podiatry Clinic [Outside] Disposition: Routine/Home Disposition Time: 21:50 Condition: STABLE Instructions: Metatarsalgia (DC) Forms: [employer] (Macedonian), [facility] ED School/Work Excuse
[2019-02-11 22:20] VITALS: BP 159/82; PULSE 77; TEMP 97.9; O2SAT 99
--- NOTE | 2019-02-12 08:17 | CP.PCM.PCO ---
Assessment and Plan - Assessment and Plan (Free Text) Assessment: 58 y/o female patient with left ankle pain Plan: Patient was seen and evaluated by Podiatry. Patient stated she was seen in the ED on 01/27/19, and then was referred to Dr. Kim by a friend. Patient did not see Dr. Kim, however, states that he reviewed her imaging and spoke to her over the phone. Dr. Kim was contacted regarding patient and it was advised that a new set of x-rays to r/o fracture and US to r/o DVT be ordered. Ankle X-ray-0- negative Patient placed in Adames compression, patient to Ice/Elevate, and partial weight bear to her heel. Patient to follow up with Dr. Kim
--- NOTE | 2019-02-12 10:02 | US ---
Date of service: 02/11/2019 HISTORY: pain. PRIORS: None. FINDINGS: 2-D, color and duplex Doppler analysis of the lower extremity venous circulation using routine protocol from the femoral veins through the popliteal veins. Venous compressibility: Normal. Flow and augmentation patterns: Normal. Visualized veins upper third of calf: Normal. De Dios cyst: None. IMPRESSION: No sonographic or Doppler evidence for DVT in left lower extremity. The preliminary findings for this examination were reported by [facility] Radiology at 9:45 p.m. on 02/11/2019. There is concurrence of this report with the preliminary findings.
--- NOTE | 2019-02-12 14:10 | RAD ---
Date of service: 02/11/2019 PROCEDURE: Left Ankle Radiographs. HISTORY: trauma COMPARISON: None available. TECHNIQUE: 3 views obtained. FINDINGS: BONES: Normal. No fracture. JOINTS: Normal. No osteoarthritis. Ankle mortise maintained. Talar dome intact SOFT TISSUES: Normal. OTHER FINDINGS: None. IMPRESSION: Normal left ankle radiographs.
== END 2019-02-11 22:18 | disposition home or self-care (01) ==
LOC: H.ER 18:22
DX: S99.922A Unspecified injury of left foot, initial encounter (principal); W20.8XXA Other cause of strike by thrown, projected or falling object, initial encounter; I10 Essential (primary) hypertension; E78.00 Pure hypercholesterolemia, unspecified; J45.909 Unspecified asthma, uncomplicated; Z95.5 Presence of coronary angioplasty implant and graft; I25.2 Old myocardial infarction; Z79.82 Long term (current) use of aspirin